=== PATIENT | female | born 1950 | race Caucasian/White ===

== ENCOUNTER → 2016-09-10 | Outpatient (CLI) | payer OTHER, MEDICARE | LOC: BHFA 09:30 | PROVIDERS: ATTEND Internal Medicine Interventional Cardiology | DX: I25.10 Atherosclerotic heart disease of native coronary artery without angina pectoris (principal); E78.5 Hyperlipidemia, unspecified ==

== ENCOUNTER → 2017-05-26 | Outpatient (CLI) | payer OTHER, MEDICARE | LOC: FIMAGING 15:01 | PROVIDERS: ATTEND Family Medicine | DX: Z12.31 Encounter for screening mammogram for malignant neoplasm of breast (principal) | CPT/HCPCS: G0202 ==

== ENCOUNTER → 2017-06-09 | Outpatient (CLI) | payer OTHER, MEDICARE | LOC: FIMAGING 10:40 | PROVIDERS: ATTEND Family Medicine | DX: R92.8 Other abnormal and inconclusive findings on diagnostic imaging of breast (principal) ==

== ENCOUNTER → 2018-04-18 | Outpatient (CLI) | payer OTHER, MEDICARE | LOC: FIMAGING 09:19 | PROVIDERS: ATTEND Internal Medicine | DX: R92.2 Inconclusive mammogram (principal); R92.0 Mammographic microcalcification found on diagnostic imaging of breast ==